=== PATIENT | male | born 2000 | race Two or more races ===

== ENCOUNTER 2019-04-07 12:01 | Emergency (ER) | payer OTHER ==
[2019-04-07 12:09] VITALS: BP 139/70
--- NOTE | 2019-04-07 12:09 | ED Physician Documentation ---
PD HPI MALE - Stated complaint Stated Complaint: MALE - Chief complaint Chief Complaint: Wound - History obtained from History obtained from: Patient - History of Present Illness Timing - onset: Last night Timing - details: Abrupt onset (he noted bleeding area of foreskin of penis shortly after intercourse with his girlfriend. Denies any toys/instruments/condoms. He says he felt a sharp feeling during intercourse and then looked and saw some blood dripping from below glans of the penis head in the end of the foreskin.) Associated symptoms: Genital sore / lesion (just this current lesion since last night). No: Dysuria, Urinary frequency, Hematuria, Testiclar pain, Scrotal swelling PD HPI MALE CONTRIB FACTORS: Sexually active Similar symptoms before: Has not had sx before Recently seen: Not recently seen Review of Systems Constitutional: denies: Fever, Chills Nose: denies: Rhinorrhea / runny nose, Congestion Throat: denies: Sore throat Respiratory: denies: Cough : denies: Dysuria, Frequency Skin: denies: Rash, Lesions PD PAST MEDICAL HISTORY - Past Medical History Cardiovascular: None Respiratory: None RN LACTATION CONSULTANT: None : None - Allergies Allergies/Adverse Reactions: Allergies Allergy/AdvReac Type Severity Reaction Status Date / Time amoxicillin [From Augmentin] Allergy Unknown Verified 04/07/19 12:09 clavulanic acid Allergy Unknown Verified 04/07/19 12:09 [From Augmentin] PD ED PE NORMAL - Vitals Vital signs reviewed: Yes - General General: Alert and oriented X 3, No acute distress, Well developed/nourished - HEENT HEENT: PERRL, Pharynx benign - Abdomen Abdomen: Soft, Non tender - Male Male : Other (uncircumcised male with easy retraction of the foreskin. No rash nor redness nor sores at the glans/base. There is a small 2-3 mm skin tear on the bottom of the base of the foreskin. No redness nor exudate. No bleeding at this time.) Results - Vitals Vitals: Vital Signs - 24 hr 04/07/19 12:05 Temperature 36.9 C Heart Rate 72 Respiratory 16 Rate Blood Pressure 139/70 H O2 Saturation 97 Oxygen O2 Source Room air PD MEDICAL DECISION MAKING - ED course Complexity details: considered differential (denies catching foreskin in zipper. States injury was with regular intercourse and abrupt onset. Presume there was some foreskin attachment at that part of the ring, that tore mechanically with the intercourse. ), d/w patient Departure - Departure Disposition: 01 Home, Self Care Clinical Impression: Injury to scrotum, penis, or foreskin Qualifiers: Encounter type: initial encounter Qualified Code(s): S39.94XA - Unspecified injury of external genitals, initial encounter Condition: Stable Record reviewed to determine appropriate education?: Yes Instructions: ED Abrasion Comments: Clean the injury with soap and water couple times a day and apply ointment such as bacitracin or Neosporin to the area. This should heal up well without any problems over a few days. Recheck if signs of infection. Discharge Date/Time: 04/07/19 13:12
[2019-04-07] MEDS ORDERED: BACITRACIN OINT TOP STA (12:26)
== END 2019-04-07 13:12 | disposition home or self-care (01) ==
LOC: ED 12:01
DX: S39.94XA Unspecified injury of external genitals, initial encounter (principal); X58.XXXA Exposure to other specified factors, initial encounter
CPT/HCPCS: 99282; 99283; A9270